=== PATIENT | female | born 1980 | race African-American/Black ===

== ENCOUNTER 2019-07-02 08:43 | Day surgery (SDC) | payer OTHER ==
[~2019-07-02] VITALS: Ht 160 cm; Wt 99.5 kg
[2019-07-02 09:08] LABS: HEMATOCRIT 41.9 % (36.0-48.0); HEMOGLOBIN 12.8 g/dL (12-16); MCH 26.7 pg (26.0-34.0); MCHC 30.5 g/dL (31.0-37.0); MCV 87.5 fL (80.0-100.0); MEAN PLATELET VOLUME 9.4 fL (7.4-10.4); RBC 4.79 10x6/uL (4.00-5.40); RDW 14.5 % (11.5-14.5); WBC 5.4 10x3/uL (4.8-10.8)
[2019-07-02 09:17] LABS: ANION GAP 11.7 mmol/L (8-16); CALCIUM 9.4 mg/dL (8.5-10.1); CARBON DIOXIDE 28.9 mmol/L (21.0-32.0); CREATININE - SERUM 1.4 mg/dL (0.6-1.3); POTASSIUM - SERUM 3.6 mmol/L (3.5-5.1)
[2019-07-02] MEDS ORDERED: NIFEDIPINE 60 MG PO (09:50)
[2019-07-02] MEDS ORDERED: HCTZ25 MG PO (09:51)
[2019-07-02] MEDS ORDERED: COREG25 MG PO (09:51)
[2019-07-02] MEDS ORDERED: GLUCOTROL ER2.5 MG PO (09:52)
[2019-07-02] MEDS ORDERED: TORSEMIDE20 MG PO (09:52)
[2019-07-02] MEDS ORDERED: TOPIRAMATE 25 MG PO (09:53)
[2019-07-02 10:04] VITALS: Ht 160 cm; Wt 99.5 kg
--- NOTE | 2019-07-02 11:13 | NUR ---
DC INSTRUCTIONS GIVEN TO PT. STATES UNDERSTANDING. DC'D IV CATH FULLY INTACT.
--- NOTE | 2019-07-02 11:24 | NUR ---
PT LEFT UNIT VIA WC AT 1113
--- NOTE | 2019-07-03 09:55 | OP ---
PATIENT NAME: TESS ALARCON MEDICAL RECORD: [id number] :80 LOCATION:[facility] ADMISSION DATE: SURGEON: KESHAV HEART DO DATE OF OPERATION: 07/02/2019 PROCEDURE: EGD with biopsies. INDICATIONS FOR PROCEDURE: Change in bowel habits, generalized abdominal pain, nausea and vomiting. SCOPE: Olympus video gastroscope. MEDICATIONS: Propofol 180 mg IV per anesthesia. ESTIMATED BLOOD LOSS: Minimal. COMPLICATIONS: None. FINDINGS: Informed consent was given. The patient was made comfortable with the above medication. After reaching an adequate level of sedation by slow IV push, the patient was placed on her left side. The endoscope was advanced under direct visualization through the mouth to the second portion of the duodenum with ease. The entire esophagus appeared normal down to the GE junction. At the GE junction, there were minor changes consistent with LA class A reflux-induced esophagitis. Cold forceps biopsies were taken from the squamocolumnar junction to rule out the presence of Green's esophagus. The endoscope was advanced beyond the GE junction into the stomach and retroflexed to view the cardia, which appeared normal. The fundus and proximal body of the stomach appeared normal. In the antrum and prepyloric region, there was some erythema and granularity consistent with mild gastritis. Cold forceps biopsies were taken from the antrum and incisura to submit for histopathology and to rule out the presence of H. pylori. The endoscope was advanced beyond the pylorus into the duodenum, which appeared normal to the second portion. Cold forceps biopsies were taken to submit for histopathology. The endoscope was withdrawn from the patient. The patient tolerated the procedure well and there were no complications. IMPRESSIONS: 1. LA class A reflux-induced esophagitis. 2. Mild gastritis. PLAN AND RECOMMENDATIONS: 1. Discharge home when recovery parameters are met. 2. Follow up biopsy specimen results. 3. GERD diet and reflux precautions. 4. Omeprazole 40 mg daily times 60 days. 5. Arrange for a gastric emptying scan to rule out the presence of gastroparesis based on the patient's symptoms of nausea and vomiting, bloating, early satiety, and generalized abdominal pain. 6. Follow up in GI clinic in 4 weeks. TRANSINT:[id number] Voice Confirmation ID: [id number] DOCUMENT ID: [id number] OPERATIVE REPORT [id number] TESS ALARCONKESHAV GUEVARA DO at 0955 CC: [id number] DICTATION DATE: 07/02/19 1047 CONTACT LENS POLISHER: 07/02/19 1740 [facility] 07/02/19 [id number] [place] [address]
== END 2019-07-02 11:19 | disposition home or self-care (01) ==
LOC: D.OPS 08:43
PROVIDERS: Anesthesiology; ATTEND Internal Medicine Gastroenterology
DX: R19.4 Change in bowel habit (principal); R10.9 Unspecified abdominal pain; R11.2 Nausea with vomiting, unspecified; R74.8 Abnormal levels of other serum enzymes; K76.0 Fatty (change of) liver, not elsewhere classified

== ENCOUNTER 2019-07-12 08:00 | Outpatient (CLI) | payer OTHER ==
[2019-07-02 10:04] VITALS: BMI 38.8
[~2019-07-12 08:00] MED LIST: COREG25 MG PO; GLUCOTROL ER2.5 MG PO; HCTZ25 MG PO; NIFEDIPINE 60 MG PO; TOPIRAMATE 25 MG PO; TORSEMIDE20 MG PO
== END 2019-07-12 08:01 | disposition home or self-care (01) ==
LOC: D.NM 08:00
PROVIDERS: ATTEND Internal Medicine Gastroenterology
DX: R19.4 Change in bowel habit (principal); R10.84 Generalized abdominal pain; R11.2 Nausea with vomiting, unspecified

== ENCOUNTER 2019-12-07 08:14 | Day surgery (SDC) | payer OTHER ==
[~2019-12-07] VITALS: Ht 160 cm; Wt 95.5 kg
[2019-12-07 08:43] LABS: HEMATOCRIT 40.6 % (36.0-48.0); HEMOGLOBIN 12.7 g/dL (12-16); MCH 26.4 pg (26.0-34.0); MCHC 31.3 g/dL (31.0-37.0); MCV 84.4 fL (80.0-100.0); MEAN PLATELET VOLUME 9.7 fL (7.4-10.4); RBC 4.81 10x6/uL (4.00-5.40); RDW 14.7 % (11.5-14.5); WBC 6.3 10x3/uL (4.8-10.8)
[2019-12-07 08:52] LABS: ANION GAP 13.7 mmol/L (8-16); CALCIUM 8.9 mg/dL (8.5-10.1); CARBON DIOXIDE 26.5 mmol/L (21.0-32.0); CREATININE - SERUM 1.1 mg/dL (0.6-1.3); POTASSIUM - SERUM 3.2 mmol/L (3.5-5.1)
[2019-12-07] MEDS ORDERED: ZANAFLEX4 MG PO (09:38)
[2019-12-07] MEDS ORDERED: CATAPRES0.2 MG PO (09:39)
[2019-12-07] MEDS ORDERED: AVAPRO300 MG PO (09:39)
[2019-12-07 09:44] VITALS: Ht 160 cm; Wt 95.5 kg
--- NOTE | 2019-12-07 15:31 | NUR ---
1147 IV DC'D. CATHETER TIP INTACT. NO BLEEDING AT SITE. BANDAID APPLIED. PT VOICES UNDERSTANDING OF DISCHARGE INSTRUCTIONS THAT HAVE BEEN REVIEWED WITH HER.
--- NOTE | 2019-12-08 08:39 | OP ---
PATIENT NAME: TESS ALARCON MEDICAL RECORD: [id number] :80 LOCATION:[facility] ADMISSION DATE: SURGEON: KESHAV HEART DO DATE OF OPERATION: 12/07/2019 PROCEDURE: Colonoscopy with biopsy. INDICATIONS FOR PROCEDURE: Change in bowel habits, generalized abdominal pain, nausea, and vomiting. SCOPE: Olympus video pediatric colonoscope. MEDICATIONS: Propofol 400 mg IV per anesthesia. WITHDRAWAL TIME: 8 minutes. ESTIMATED BLOOD LOSS: Minimal. COMPLICATIONS: None. FINDINGS: Informed consent was given. The patient was made comfortable with the above medication. After reaching an adequate level of sedation by slow IV push, the patient was placed on her left side. A digital rectal examination was performed and was normal. The endoscope was then advanced under direct visualization through the rectum to the cecum, confirmed by the presence of the appendiceal orifice and ileocecal valve. The endoscope was slowly withdrawn and mucosa was carefully examined. The prep quality was fair. The terminal ileum appeared normal. The entire colon appeared normal without polyps or diverticula. Retroflexion was performed in the rectum with visualization of grade I internal hemorrhoids without bleeding. The random cold forceps biopsies were taken from the colon to submit for histopathology and to rule out the presence of microscopic colitis. IMPRESSION: 1. Grade I internal hemorrhoids without bleeding. 2. Otherwise, normal colonoscopy to cecum and terminal ileum. PLAN AND RECOMMENDATIONS: 1. Discharge home when recovery parameters are met. 2. Follow up biopsy specimen results. 3. High fiber diet. 4. Continue current medications. 5. Recall colonoscopy at age 50 for colon cancer screening purposes. 6. Trial of Linzess 145 mcg daily for chronic idiopathic constipation and irritable bowel symptoms. TRANSINT:[id number] Voice Confirmation ID: [id number] DOCUMENT ID: [id number] OPERATIVE REPORT [id number] TESS ALARCON KESHAV HEART DO at 0839 CC: [id number] DICTATION DATE: 12/07/19 1052 SIMONIZER: 12/07/19 1843 [facility] 12/07/19 [facility] [address] [id number]
== END 2019-12-07 11:57 | disposition home or self-care (01) ==
LOC: D.OPS 08:14
PROVIDERS: Anesthesiology; ATTEND Internal Medicine Gastroenterology
DX: R19.4 Change in bowel habit (principal); R10.84 Generalized abdominal pain; R11.2 Nausea with vomiting, unspecified; K64.0 First degree hemorrhoids; K76.0 Fatty (change of) liver, not elsewhere classified; K59.00 Constipation, unspecified